=== PATIENT | male | born 1945 | race Caucasian/White ===

== ENCOUNTER → 2020-12-21 | Outpatient (CLI) | payer OTHER ==
[~2020-12-21] MED LIST: ADVAIRDISKUS; ALBUTEROL S5 MG/1 ML; AMARYL1 MG PO; ARTHRITIS PAIN100 GM; ASA81BEC PO; ATORVASTATIN CA10 MG PO; AVELOX 400 MG400 MG; BARIATRIC MV-I1 EACH; CO-ENZYME Q-1010 MG PO; COLACE100 MG; COMBIVENT; FLOMAX; FLOMAX0.4 MG PO; FUROSEMIDE 40 M40 MG; GAS-X125 MG; GLUCOTROL5 MG; HYDROCODONE-AP1 EAC6 PO; HYTRIN 5 M5 MG/1 CAP; IRON18 M1 PO; LANTUSSOLASTAR; LEVEMIR SUBQ; LISINOPRIL40 MG; MEBOLIC TABLET1 EACH PO; METFORMIN HCL500 M3 PO; MIRALAX255 GM; NEURONTIN600 MG PO; NOVOLOG100 UNIT/1; OMEPRAZOLE20 MG; PREDNISONE 10 M10 M1; SIMVASTATIN40 MG; TOPROL XL50 MG; VERAPAMIL ER180 MG; WIXELA 500-501 EACH; ZETIA10 MG; [UNRECOGNIZED DRUG - OTHER]
== END ==
LOC: M.PC 09:15
PROVIDERS: ATTEND Physical Medicine & Rehabilitation
DX: M51.36 Other intervertebral disc degeneration, lumbar region (principal); M48.061 Spinal stenosis, lumbar region without neurogenic claudication; M47.816 Spondylosis without myelopathy or radiculopathy, lumbar region; M79.604 Pain in right leg; M79.605 Pain in left leg; Z96.641 Presence of right artificial hip joint

== ENCOUNTER → 2021-01-25 | Outpatient (CLI) | payer OTHER | END | disposition home or self-care (01) | LOC: M.PC 09:22 | PROVIDERS: ATTEND Physical Medicine & Rehabilitation | DX: M54.59 Other low back pain (principal); M51.16 Intervertebral disc disorders with radiculopathy, lumbar region; M47.26 Other spondylosis with radiculopathy, lumbar region; M79.604 Pain in right leg; M79.605 Pain in left leg; I10 Essential (primary) hypertension; E11.9 Type 2 diabetes mellitus without complications; J44.9 Chronic obstructive pulmonary disease, unspecified; Z98.890 Other specified postprocedural states; Z79.899 Other long term (current) drug therapy; Z96.641 Presence of right artificial hip joint; Z88.8 Allergy status to other drugs, medicaments and biological substances ==